=== PATIENT | male | born 1955 | race Caucasian/White ===

== ENCOUNTER 2020-06-25 10:31 | Emergency (ER) | payer BC, MEDICAID ==
--- NOTE | 2020-06-25 11:13 | EDM.PDOC ---
ED HPI GENERAL MEDICAL PROBLEM - General Chief Complaint: General Stated Complaint: NUMBNESS, WEAKNESS IN L ARM Time Seen by Provider: 06/25/20 10:55 Source of Information: Reports: Patient, RN History Limitations: Reports: Other (no old records) - History of Present Illness INITIAL COMMENTS - FREE TEXT/NARRATIVE: 65 yo male awoke last night about 2 am with bilateral arm numbness. His L arm from the elbow down is still numb and weak. He called the clinic and was told to come to the ER. He takes only a baby aspirin daily including today. He doesn't smoke. He has a strong FHx of CAD. He does not know his cholesterol level. He has not had his BP or BS checked in years. He denies any recent chest pain or TRAN. Did take his ASA today. Onset: Today, Sudden Onset Date: 06/25/20 Duration: Hour(s):, Constant Location: Reports: Upper Extremity, Left Quality: Reports: Other (weak and numb) Severity: Moderate Improves with: Reports: None Worsens with: Reports: Other (uncertain) Context: Reports: Other (See HPI) Associated Symptoms: Reports: No Other Symptoms Treatments LATCHER: Reports: Other (see below) (none) - Related Data Allergies Allergy/AdvReac Type Severity Reaction Status Date / Time No Known Allergies Allergy Verified 06/25/20 10:48 Home Meds: Home Meds Aspirin [Ecotrin EC] 81 mg PO DAILY 06/25/20 [History] Past Medical History HEENT History: Reports: None Cardiovascular History: Reports: None Respiratory History: Reports: None Gastrointestinal History: Reports: None Genitourinary History: Reports: None Musculoskeletal History: Reports: Fracture Neurological History: Reports: None Psychiatric History: Reports: None Endocrine/Metabolic History: Reports: None Hematologic History: Reports: None Immunologic History: Reports: None Oncologic (Cancer) History: Reports: None Dermatologic History: Reports: None - Infectious Disease History Infectious Disease History: Reports: Chicken Pox - Past Surgical History HEENT Surgical History: Reports: None GI Surgical History: Reports: None Musculoskeletal Surgical History: Reports: None Social & Family History - Caffeine Use Caffeine Use: Reports: Coffee - Recreational Drug Use Recreational Drug Use: No ED ROS GENERAL - Review of Systems Review Of Systems: See Below Constitutional: Reports: No Symptoms HEENT: Reports: No Symptoms Respiratory: Reports: No Symptoms Cardiovascular: Reports: No Symptoms GI/Abdominal: Reports: No Symptoms : Reports: No Symptoms Musculoskeletal: Reports: No Symptoms Skin: Reports: No Symptoms Neurological: Reports: Numbness (L forearm and hand), Weakness (L forearm and hand). Denies: Confusion, Dizziness, Headache, Seizure, Syncope, Trouble Speaking, Difficulty Walking, Change in Speech, Gait Disturbance Psychiatric: Reports: No Symptoms ED EXAM, GENERAL - Physical Exam Exam: See Below Exam Limited By: No Limitations General Appearance: Alert, WD/WN, No Apparent Distress Eye Exam: Bilateral Eye: EOMI, Normal Inspection, PERRL Ears: Normal External Exam, Normal Canal, Hearing Grossly Normal Ear Exam: Bilateral Ear: Auricle Normal, Canal Normal Nose: Normal Inspection, No Blood Throat/Mouth: Normal Inspection, Normal Lips, Normal Oropharynx, Normal Voice, No Airway Compromise Head: Atraumatic, Normocephalic Neck: Normal Inspection Respiratory/Chest: No Respiratory Distress, Lungs Clear, Normal Breath Sounds, No Accessory Muscle Use Cardiovascular: Regular Rate, Rhythm, No Edema. No: Bradycardia, Tachycardia Peripheral Pulses: 0: Radial (L) Back Exam: Normal Inspection Extremities: Normal Inspection, Non-Tender, No Pedal Edema. 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 Good L arm strength to arm flexion and shoulder extension. ) Psychiatric: Normal Affect, Normal Mood Skin Exam: Warm, Dry, Intact, Normal Color, No Rash Course - Vital Signs Last Recorded V/S: Last Vital Signs Temp 37.1 C 06/25/20 10:47 Pulse 63 06/25/20 11:43 Resp 14 06/25/20 11:43 BP 138/86 06/25/20 11:43 Pulse Ox 97 06/25/20 11:43 - Orders/Labs/Meds Orders: Active Orders 24 hr Category Date Time Status Cardiac Monitoring [RC] .As Directed Care 06/25/20 10:59 Active Cervical Spine Comp wo Cont [MR] Stat Exams 06/25/20 11:52 Ordered Labs: Laboratory Tests 06/25/20 06/25/20 Range/Units 11:22 11:22 WBC 2.3 L (4.5-11.0) K/uL RBC 4.76 (4.30-5.90) M/uL Hgb 13.7 (12.0-15.0) g/dL Hct 41.4 (40.0-54.0) % MCV 87 (80-98) fL MCH 29 (27-31) pg MCHC 33 (32-36) % Plt Count 223 (150-400) K/uL Sodium 140 (140-148) mmol/L Potassium 4.1 (3.6-5.2) mmol/L Chloride 101 (100-108) mmol/L Carbon Dioxide 29 (21-32) mmol/L Anion Gap 10.0 (5.0-14.0) mmol/L BUN 10 (7-18) mg/dL Creatinine 0.9 (0.8-1.3) mg/dL Est Cr Clr Drug Dosing 81.28 mL/min Estimated GFR (MDRD) > 60 (>60) Glucose 114 H (74-106) mg/dL Calcium 9.0 (8.5-10.1) mg/dL Troponin I < 0.017 (0.000-0.056) ng/mL - Radiology Interpretation Free Text/Narrative:: Head CT scan-? small hemorrhage R internal capsule(see full report by radiology) MRI Brain-neg MRI cervical spine-minimal den changes CT Results Date: 06/25/20 Departure - Departure Time of Disposition: 14:11 Disposition: Home, Self-Care 01 Condition: Fair Clinical Impression: Numbness and tingling of left upper extremity, Left wrist drop - Discharge Information *PRESCRIPTION DRUG MONITORING PROGRAM REVIEWED*: No *COPY OF PRESCRIPTION DRUG MONITORING REPORT IN PATIENT VIKASH: No Referrals: PCP,None [Primary Care Provider] - Forms: ED Department Discharge Additional Instructions: Follow up with neurology to further define the site of your apparent nerve impingement. Return as needed. Sepsis Event Note (ED) - Evaluation Sepsis Screening Result: No Definite Risk - Focused Exam Vital Signs: Vital Signs Temp Pulse Resp BP Pulse Ox 06/25/20 11:43 63 14 138/86 97 06/25/20 11:04 67 16 159/88 H 97 06/25/20 10:47 37.1 C 68 16 160/83 H 97 06/25/20 10:46 37.1 C 68 16 160/83 H 97 - My Orders Last 24 Hours: My Active Orders 06/25/20 10:59 Cardiac Monitoring [RC] .As Directed 06/25/20 11:52 Cervical Spine Comp wo Cont [MR] Stat - Assessment/Plan Last 24 Hours: My Active Orders 06/25/20 10:59 Cardiac Monitoring [RC] .As Directed 06/25/20 11:52 Cervical Spine Comp wo Cont [MR] Stat
--- NOTE | 2020-06-25 11:53 | CT ---
Head wo Cont CLINICAL HISTORY: Left arm numbness and weakness COMPARISON: None TECHNIQUE: Transverse scans were obtained from the base of the skull through the vertex without IV contrast on a multislice, multidetector CT scanner. Auto dosage reduction and iterative reconstruction techniques employed. FINDINGS: There is a 4 x 5 mm focus of increased density in the posterior limb of the right internal capsule. This is somewhat ill-defined. This could represent a tiny focus of hemorrhage. The volume averaging with vessels wall calcification is not excluded. There is a similar-sized low-attenuation focus in the anterior limb of the right internal capsule. There is no mass effect, or extraaxial collection. The basal cisterns and sulci over the convexities are normal. The ventricles are normal for age. IMPRESSION: Small focus of increased density in the mid to posterior internal capsule. This could be volume averaging but small hemorrhage is not excluded Similar size focus of decreased density in the anterior limb of the internal capsule. Small ischemic infarct is not excluded. MRI should be considered to exclude a subacute infarct
--- NOTE | 2020-06-25 14:07 | MR ---
Brain wo Cont CLINICAL HISTORY: Left arm weakness COMPARISON: Current noncontrast HCT TECHNIQUE: Multiple axial, sagittal, and coronal images were obtained on a 1.5 T magnet with multiweighted sequences, FLAIR, and diffusion imaging without contrast. FINDINGS: There is no focal mass lesion. There is no hemmorhage or extraaxial collection. No restricted diffusion is identified. The basal cisterns and sulci over the convexities are normal. The ventricles are normal for age. Specifically, there is no abnormal signal in the region of the right basal ganglia/internal capsule region IMPRESSION: No acute intracranial findings Specifically, right basal ganglia has a normal configuration and signal. Areas of abnormal attenuation suggested on the head CT are likely volume imaging artifact.
--- NOTE | 2020-06-25 14:12 | MR ---
Cervical Spine Comp wo Cont CLINICAL HISTORY: Left arm weakness TECHNIQUE: Sagittal and axial T2 and sagittal T1-weighted images were obtained through the cervical spine without contrast. All images were obtained on a 1.5 Poppy superconducting magnet. COMPARISON: None FINDINGS: The cervical vertebral configuration and signal is normal throughout. Alignment is maintained. The medulla and cervical cord have normal contour and signal. Axial images show some mild spondylosis and uncovertebral joint spurring. There is mild left-sided neural foraminal encroachment at C2-3. There is moderate uncovertebral joint spurring on the right at C5-6 causing neural foraminal encroachment. There is left-sided neural foraminal encroachment at C6-7. IMPRESSION: Mild spondylosis and uncovertebral joint spurring with some neural foraminal encroachment described above
== END 2020-06-25 14:38 | disposition home or self-care (01) ==
LOC: JP.ED 10:31
DX: R20.2 Paresthesia of skin (principal); M21.332 Wrist drop, left wrist; Z79.82 Long term (current) use of aspirin
CPT/HCPCS: 36415; 70450; 70450-26; 70551; 70551-26; 72141; 72141-26; 80048; 84484; 85027; 99283; 99284-25